=== PATIENT | female | born 1980 | race Caucasian/White ===

== ENCOUNTER → 2019-03-11 09:28 | Outpatient (CLI) | payer OTHER, SELFPAY ==
[2019-03-11 10:00] LABS: Add Manual Diff / Slide Review NO; Basophils Absolute Auto 0 /uL (0-100); Basophils Percent Auto 0.7 % (0-2); Eosinophils Absolute Auto 200 /uL (0-450); Hematocrit 40.4 % (36-46); Hemoglobin 13.7 g/dL (12.0-16.0); Lymphocytes Absolute Auto 2100 /uL (1100-4500); Lymphocytes Percent Auto 29.7 % (25-40); Mean Corpuscular HGB Conc 33.9 % (30-36); Mean Corpuscular Hemoglobin 29.6 PG (26-34); Mean Corpuscular Volume 87.2 fL (80-100); Monocytes Absolute Auto 500 /uL (0-900); Monocytes Percent Auto 6.6 % (3-14); Neutrophils Absolute Auto 4200 /uL (1500-7000); Platelet Count 261 X10^3/uL (150-400); Red Blood Cell Count 4.63 X10^6/uL (4.0-5.2); Red Cell Distribution Width 13.1 % (11.6-14.8)
[2019-03-11 10:33] LABS: Alanine Aminotransferase 39 IU/L (9-52); Albumin 4.4 g/dL (3.5-5.0); Albumin Globulin Ratio 1.8 (1.0-2.8); Alkaline Phosphatase 49 U/L (38-126); Aspartate Aminotransferase 24 IU/L (14-36); BUN Creatinine Ratio 18.8 (6-22); Bilirubin Total 0.4 mg/dL (0.2-1.3); Blood Urea Nitrogen 15 mg/dL (7-17); Calcium 9.4 mg/dL (8.4-10.2); Carbon Dioxide 23 mmol/L (22-32); Chloride 106 mmol/L (98-107); Cholesterol 171 mg/dL (140-199); Estimated Glomerular Filt Rate > 60.0 mL/min (>60); Globulin 2.5 g/dL (1.7-4.1); Glucose 87 mg/dL (70-100); HDL Cholesterol 53 mg/dL (40-60); HEMOLYSIS < 15 (0-50); LDL Cholesterol Calculated 104 mg/dL (<100); Potassium 4.6 mmol/L (3.4-5.1); Sodium 139 mmol/L (137-145); Total Protein 6.9 g/dL (6.3-8.2); Triglycerides 68 mg/dL (35-150)
[2019-03-11 11:21] LABS: Free T4, Direct Thyroxine 1.03 ng/dL (0.78-2.19)
[2019-03-11 11:34] LABS: Thyroid Stimulating Hormone 1.82 uIU/mL (0.47-4.68)
== END ==
PROVIDERS: PCP Internal Medicine; Visit Provider Internal Medicine
DX: F32.9 Major depressive disorder, single episode, unspecified (principal); F41.1 Generalized anxiety disorder; G43.909 Migraine, unspecified, not intractable, without status migrainosus; Z13.1 Encounter for screening for diabetes mellitus; Z13.6 Encounter for screening for cardiovascular disorders
CPT/HCPCS: 36415; 80053; 80061; 84439; 84443; 85025

== ENCOUNTER → 2020-04-13 14:15 | Outpatient (CLI) | payer OTHER, SELFPAY ==
--- NOTE | 2020-04-13 14:15 | DI.RAD.S_ITS ---
PROCEDURE: XR CHEST 2V INDICATIONS: cough TECHNIQUE: 2 views of the chest were acquired. COMPARISON: [facility], , CHEST 2 VIEW, 01/09/2012, 9:35. FINDINGS: Surgical changes and devices: None. Lungs and pleura: Lungs are clear. No pleural effusions or pneumothorax. Mediastinum: Mediastinal contours are normal. Heart size is normal. Bones and chest wall: No suspicious bony abnormalities. Soft tissues appear unremarkable. IMPRESSION: No pneumonia found. Source of cough is not seen. Dictated by: Jose George M.D. on 04/13/2020 at 15:16 Approved by: Jose George M.D. on 04/13/2020 at 15:17
== END ==
PROVIDERS: PCP Internal Medicine; Referring Provider Internal Medicine; Visit Provider Internal Medicine
DX: R05 Cough (principal)
CPT/HCPCS: 71046

== ENCOUNTER → 2020-05-05 15:20 | Outpatient (CLI) | payer OTHER, SELFPAY ==
[2020-05-06 09:05] LABS: COVID19 Sendout NOT DETECTED (Not Detect)
== END ==
PROVIDERS: PCP Internal Medicine; Visit Provider Registered Nurse
DX: Z01.812 Encounter for preprocedural laboratory examination (principal)
CPT/HCPCS: 87635

== ENCOUNTER → 2020-05-08 13:02 | Outpatient (CLI) | payer OTHER, SELFPAY ==
--- NOTE | 2020-05-13 10:09 | PM.PFT.1 ---
Pulmonary Function Test Referral & Results Date Patient Seen: 05/08/20 Requesting provider: Aleksandar Castro Indication: Shortness of breath and cough Results: The spirometry demonstrates an FVC of 5.23 L which is 124% of predicted. The FEV1 was measured at 3.95 L which is 115% of predicted. The FEV1/FVC ratio was 75 which is 91% of predicted. Following the administration of bronchodilator there was no appreciable change to above normal numbers. Lung volumes show an SVC of 5.11 L which is 131% of predicted. The diffusing capacity was measured at 30.64 which is 103% of predicted. The maximum voluntary ventilation was normal Interpretation: This study demonstrates normal pulmonary function. No etiology for cough or shortness of breath identified on this study
== END ==
PROVIDERS: PCP Internal Medicine; Referring Provider Internal Medicine; Visit Provider Internal Medicine
DX: R06.02 Shortness of breath (principal); J98.8 Other specified respiratory disorders
CPT/HCPCS: 94060; 94726; 94729

== ENCOUNTER → 2020-05-13 09:55 | Outpatient (CLI) | payer OTHER, SELFPAY ==
--- NOTE | 2020-05-13 09:56 | DI.CT.S_ITS ---
PROCEDURE: CT ANGIO CHEST PE PROTOCOL INDICATIONS: chest pain/cough TECHNIQUE: After the administration of intravenous contrast, 2 mm thick sections acquired from the pulmonary apices to the posterior costophrenic angles. 3-dimensional maximum intensity projection (MIP) coronal and sagittal reformats were then acquired through the thorax. For radiation dose reduction, the following was used: automated exposure control, adjustment of mA and/or kV according to patient size. COMPARISON: [facility], CR, XR CHEST 2V, 04/13/2020, 14:08. FINDINGS: Image quality: Excellent. Pulmonary arteries: Pulmonary arteries are normal in size, and demonstrate no intraluminal filling defects to suggest central pulmonary embolism. Lungs and pleura: Lungs are clear. No pleural effusions or pneumothorax. Central and peripheral airways are patent. Mediastinum: Heart size is normal, without pericardial effusion. No mediastinal or hilar adenopathy. Thoracic aorta is normal in caliber and enhancement. Esophagus is normal in caliber, without hiatal hernia. Bones and chest wall: No suspicious bony lesions. Ribs and thoracic spine appear intact throughout. There is a 1 cm left thyroid nodule. A 5 mm cyst is noted in the right thyroid lobe. No axillary or supraclavicular adenopathy. Abdomen: Visualized upper abdominal solid organs appear normal in the early arterial phase of enhancement. IMPRESSION: 1. No pulmonary embolism. 2. No pulmonary infiltrate or pleural effusion. 3. A 1 cm left thyroid nodule. Thyroid ultrasound is suggested for followup. Dictated by: Jeffrey Eubanks M.D. on 05/13/2020 at 10:37 Approved by: Jeffrey Eubanks M.D. on 05/13/2020 at 10:52
== END ==
PROVIDERS: PCP Internal Medicine; Referring Provider Internal Medicine; Visit Provider Internal Medicine
DX: R07.9 Chest pain, unspecified (principal); R05 Cough; E04.1 Nontoxic single thyroid nodule
CPT/HCPCS: 71275; Q9967

== ENCOUNTER → 2020-07-28 09:53 | Outpatient (CLI) | payer OTHER, SELFPAY ==
--- NOTE | 2020-07-28 | DI.CT.S_ITS ---
PROCEDURE: CT SINUS SCREEN WO CON INDICATIONS: Chronic sinusitis, unspecified TECHNIQUE: Noncontrast 3.0 mm axial images acquired from the frontal sinuses to the mid-sella, with coronal and sagittal reformats. For radiation dose reduction, the following was used: automated exposure control, adjustment of mA and/or kV according to patient size. COMPARISON: [facility], MR, BRAIN WITHOUT CONTRAST, 12/16/2014, 12:23. FINDINGS: Image quality: Excellent. Maxillary Sinuses: No bony remodeling or destruction. Mild mucosal thickening is seen within the inferior aspects of the maxillary sinuses. Ethmoid Air Cells: No bony remodeling or destruction. Sinuses are clear. Sphenoid Sinuses: No bony remodeling or destruction. Sinuses are clear. Frontal Sinuses: No bony remodeling or destruction. Sinuses are clear. Ostiomeatal Complexes: Ostiomeatal complexes are patent, yet they are constitutionally narrowed with bilateral Abran cells. Miscellaneous: Visualized intra-orbital contents are normal. No drake bullosa or paradoxical turbinate curvature. There is moderate leftward nasal septal deviation, with a leftward directed bony nasal septal spur. IMPRESSION: Mild mucosal thickening is seen within the inferior maxillary sinuses. There is moderate leftward nasal septal deviation, with a leftward directed bony nasal septal spur. Dictated by: Porter Montanez M.D. on 07/28/2020 at 9:08 Approved by: Porter Montanez M.D. on 07/28/2020 at 9:11
== END ==
PROVIDERS: PCP Internal Medicine; Referring Provider Internal Medicine; Visit Provider Internal Medicine
DX: J32.0 Chronic maxillary sinusitis (principal); J34.2 Deviated nasal septum; J34.89 Other specified disorders of nose and nasal sinuses
CPT/HCPCS: 70486

== ENCOUNTER → 2021-10-05 15:20 | Outpatient (CLI) | payer OTHER, SELFPAY ==
[2021-10-05 17:09] LABS: Free T4, Direct Thyroxine 0.73 ng/dL (0.78-2.19)
[2021-10-05 17:23] LABS: Thyroid Stimulating Hormone 1.01 uIU/mL (0.47-4.68)
[2021-10-05 17:29] LABS: Alanine Aminotransferase 16 IU/L (<35); Albumin 4.5 g/dL (3.5-5.0); Albumin Globulin Ratio 1.7 (1.0-2.8); Alkaline Phosphatase 43 U/L (38-126); Aspartate Aminotransferase 25 IU/L (14-36); BUN Creatinine Ratio 18.3 (6-22); Bilirubin Total 0.4 mg/dL (0.2-1.3); Blood Urea Nitrogen 17 mg/dL (7-17); Calcium 10.1 mg/dL (8.4-10.2); Carbon Dioxide 31 mmol/L (22-32); Chloride 103 mmol/L (98-107); Estimated Glomerular Filt Rate > 60.0 mL/min (>60); Globulin 2.6 g/dL (1.7-4.1); Glucose 70 mg/dL (70-100); HEMOLYSIS < 15 (0-50); Sodium 141 mmol/L (137-145); Total Protein 7.1 g/dL (6.3-8.2)
== END ==
PROVIDERS: PCP Internal Medicine; Referring Provider Internal Medicine; Visit Provider Internal Medicine
DX: E04.1 Nontoxic single thyroid nodule (principal)
CPT/HCPCS: 36415; 80053; 84439; 84443

== ENCOUNTER → 2021-10-13 14:10 | Outpatient (CLI) | payer OTHER, SELFPAY ==
--- NOTE | 2021-10-13 14:12 | DI.US.S_ITS ---
PROCEDURE: US THYROID INDICATIONS: NODULE ON CT TECHNIQUE: Real-time scanning was performed of the thyroid gland, with image documentation. COMPARISON: None. FINDINGS: Right: Thyroid lobe measures 5 x 1.2 x 1.5 cm, and is homogeneous in echotexture. Left: Thyroid lobe measures 4.7 x 1.3 x 1.6 cm, and is homogenous in echotexture. Isthmus: 2.2 mm thick. Nodule number: 1 Location: Lower pole of left thyroid lobe Size: 1 x 0.7 x 1 cm. Composition: Solid Echogenicity: Hyperechoic Shape: Wider than tall Margins: Smooth Echogenic foci: Non Total points: 3 ACR TI-RADS category: 3, mildly suspicious. Nodule number: 2 Location: Lower pole of right thyroid lobe Size: 0.7 x 0.6 x 0.6 cm. Composition: Solid Echogenicity: Hyperechoic Shape: Wider than tall Margins: Smooth Echogenic foci: Non Total points: 3 ACR TI-RADS category: 3, mildly suspicious. IMPRESSION: Mildly suspicious small bilateral thyroid lobe nodules as described above. Follow-up ultrasound based on following recommendation is suggested. ACR TI-RADS definitions and recommendations: TI-RADS 1 (benign): 0 points. FNA not needed. TI-RADS 2 (not suspicious): 2 points. FNA not needed. TI-RADS 3 (mildly suspicious): 3 points. * FNA if 2.5 cm or larger, follow up if 1.5 cm or larger (at 1, 3, and 5 years). TI-RADS 4 (moderately suspicious): 4-6 points. * FNA if 1.5 cm or larger, follow up if 1 cm or larger (at 1, 2, 3, and 5 years). TI-RADS 5 (highly suspicious): 7 points or more. * FNA if 1 cm or larger, follow up if 0.5 cm or larger (every year for 5 years). Dictated by: Hubert Nash M.D. on 10/20/2021 at 10:24 Approved by: Hubert Nash M.D. on 10/20/2021 at 10:27
== END ==
PROVIDERS: PCP Internal Medicine; Referring Provider Internal Medicine; Visit Provider Internal Medicine
DX: E04.2 Nontoxic multinodular goiter (principal)
CPT/HCPCS: 76536

== ENCOUNTER 2022-03-16 14:22 | Emergency (ER) | payer OTHER, SELFPAY ==
[2022-03-16 14:34] VITALS: BP 167/90; PULSE 67; RESP 14; TEMP 37.1; O2SAT 97; BMI 22.8
--- NOTE | 2022-03-16 14:37 | DI.RAD.S_ITS ---
PROCEDURE: XR FOOT RT MIN 3V INDICATIONS: right foot pain, stepped on by horse TECHNIQUE: 3 views of the foot were acquired. COMPARISON: None. FINDINGS: Bones: No fractures or dislocations. No suspicious bony lesions. Soft tissues: No tibiotalar joint effusion. Achilles tendon appears normal. IMPRESSION: No acute right foot fracture or dislocation. Dictated by: Hubert Nash M.D. on 03/16/2022 at 15:06 Approved by: Hubert Nash M.D. on 03/16/2022 at 15:07
--- NOTE | 2022-03-16 16:24 | ED.LOWEXIN ---
HPI - Extremity Injury (Lower) <MELIDA Acosta - Last Filed: 03/16/22 19:37> General Chief Complaint: Extremity Injury, Lower Stated Complaint: horse stepped on top of foot Time Seen by Provider: 03/16/22 16:09 Source: patient Mode of arrival: Ambulatory History of Present Illness HPI Narrative: This is a 41-year-old male presents to the emergency department complaining of right dorsum foot pain after her worse stepped on her midfoot earlier today. Patient has ecchymosis to the dorsum of her foot, states she is able to move all of her toes and move her ankle without any pain however the bruising made her worried that there is a fracture. She states she has applied Voltaren gel 2 times earlier today to the dorsum of her foot which was mildly helpful, she took some ibuprofen as well. Patient is concerned about a fracture. She states she is ambulatory and can bear weight but it is painful on the top of her foot with movement. Related Data Home Medications Medication Instructions Recorded Confirmed ibuprofen 200 mg tablet (Advil) 200 mg PO PRN #0 06/21/12 10/05/21 loratadine 10 mg tablet (Claritin) 10 mg PO DAILY 04/25/19 10/05/21 Previous Rx's Medication Instructions Recorded citalopram 10 mg tablet (Celexa) 15 mg PO DAILY #45 tab 03/10/21 alprazolam 1 mg tablet 1 mg PO BID PRN #4 tab 10/18/21 tramadol 50 mg tablet 50 mg PO DAILY PRN #10 tab 03/16/22 Allergies Allergy/AdvReac Type Severity Reaction Status Date / Time codeine [CODEINE] AdvReac Mild vomiting Verified 10/05/21 15:03 oxycodone [From PERCOCET] AdvReac Mild vomiting Verified 10/05/21 15:03 promethazine [PROMETHAZINE] AdvReac Mild nerve Verified 10/05/21 15:03 reaction, twitching Review of Systems <MELIDA Acosta - Last Filed: 03/16/22 19:37> Review of Systems Narrative: General: denies fever, chills, malaise, sweats, fatigue Head/Neck: denies headache, neck pain, dizziness Eyes: denies visual changes, eye pain Cardio: denies chest pain, palpitations, edema Respiratory: denies dyspnea, cough, orthopnea GI: denies abdominal pain, nausea, vomiting, or diarrhea : denies dysuria, hematuria, urinary retention, frequency or incontinence MSK: denies joint pain, muscle weakness, right dorsum foot pain after horse stepped on Skin: denies rash, itching, skin lesions or other Neuro: denies numbness, tingling Patient History <MELIDA Acosta - Last Filed: 03/16/22 19:37> Medical History Allergic rhinitis Anxiety state, unspecified Asthma, mild Depression 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 Mother Sarcoma Social History Smoking Status: Never smoker Smoking Status: Never smoker alcohol intake frequency: 0-2 drinks per day Substance Use Type: does not use Exam <MELIDA Acosta - Last Filed: 03/16/22 19:37> Narrative Exam Narrative: Independently reviewed vitals signs and nursing notes. General: cooperative, comfortable, in no acute distress, well developed and well groomed Head: atraumatic, symmetrical facial expressions Neck: supple, atraumatic Cardiovascular: regular rate and rhythm, no peripheral edema, warm extremities Respiratory: normal effort, able to speak in complete sentences, no audible wheezing, stridor, or rales. No retractions or tachypnea. MSK: moves all extremities, ambulatory w/steady gait, neurovascularly intact, no weakness, range of motion intact in her right ankle and right foot. No tenderness over proximal 5th or 1st metatarsal, no tenderness over medial or lateral malleolus, PT and DP pulses are 2+, cap refill in her toes are less than 2 seconds, full range of motion intact without significant tenderness over her metatarsals. No open wound. Skin: brisk capillary refill, no rash, no erythema, ecchymosis to the dorsum of her right foot Neuro: normal speech and cognition, A&O x3, normal tone Psych: mental status is grossly normal, congruent mood, normal affect, pleasant and cooperative Initial Vital Signs Initial Vital Signs: Vital Signs Temperature 98.7 F 03/16/22 14:34 Pulse Rate 67 03/16/22 14:34 Respiratory Rate 14 03/16/22 14:34 Blood Pressure 167/90 H 03/16/22 14:34 Pulse Oximetry 97 03/16/22 14:34 Course <MELIDA Acosta - Last Filed: 03/16/22 19:37> Orders Ordered: Discontinued Medications Ondansetron HCl (Ondansetron 4 Mg Odt) 4 mg SL NOW ONE Stop: 03/16/22 16:22 Last Admin: 03/16/22 16:35 Dose: 4 mg Documented by: CINTIA Tramadol HCl (Tramadol 50 Mg Tablet) 50 mg PO NOW ONE Stop: 03/16/22 16:21 Last Admin: 03/16/22 16:35 Dose: 50 mg Documented by: CINTIA Vital Signs Vital signs: Vital Signs - 8 hr 03/16/22 14:34 Temperature 98.7 F Pulse Rate 67 Respiratory Rate 14 Blood Pressure 167/90 H Pulse Oximetry 97 [facility] - Extremity Injury (Lower) <MELIDA Acosta - Last Filed: 03/16/22 19:37> Imaging Data Extremity x-ray #1: Radiologist's Impression: PROCEDURE:? XR FOOT RT MIN 3V ? INDICATIONS:? right foot pain, stepped on by horse ? TECHNIQUE:? 3 views of the foot were acquired.? ? COMPARISON:? None. ? FINDINGS:? ? Bones:? No fractures or dislocations.? No suspicious bony lesions.? ? Soft tissues:? No tibiotalar joint effusion.? Achilles tendon appears normal.? ? ? IMPRESSION:? No acute right foot fracture or dislocation. ? ? Dictated by: Hubert Nash M.D. on 03/16/2022 at 15:06 ? ? Approved by: Hubert Nash M.D. on 03/16/2022 at 15:07 ? [facility] Narrative Medical decision making narrative: This is a pleasant 41-year-old female presents to the emergency department for right dorsum foot pain after her horse stepped on her foot. She states she was wearing inch boots at the time but has ecchymosis and tenderness to the dorsum of her right foot. X-rays negative for fracture or dislocation, no tibiotalar joint effusion, Achilles tendon appears normal. Patient was fitted in a postop shoe, states that her pain is controlled with ibuprofen that she took prior to arrival, has applied Voltaren gel, states this is helpful. Patient understands to wear her postop shoe for as long as that is helpful, follow-up with her primary doctor for any worsening. Patient is appropriate and amenable to discharge home. Vital signs are stable on repeat examination is unremarkable. Patient has been informed of results. Patient has been given strict return to ER precautions for any new or worsening symptoms. Patient understands to follow up closely with outpatient providers as instructed. Patient understands plan and agrees to discharge home. All questions and concerns answered at this time. Discharge Plan Departure Patient Disposition: Home Clinical Impression: Foot injury Qualifiers: Encounter type: initial encounter Laterality: right Qualified Code(s): S99.921A - Unspecified injury of right foot, initial encounter Instructions: DI for Foot Pain Activity Restrictions/Additional Instructions: *You have been diagnosed with right foot pain after yours try to get close. No fractures on your x-ray, congratulations! Please wear this postop shoe for as long as it is helpful, if you can tolerate a regular shoe for your horse show but is completely acceptable. If you have ongoing right foot pain beyond 1 week, please follow-up with Podiatry. Please try the tramadol, this will hopefully help you with your pain at home, follow-up with Dr. Castro if you need a referral to physical therapy or Podiatry. I would ice this frequently over the next 2-3 days, take ibuprofen, Tylenol, and tramadol as you need for pain, Voltaren gel can be applied up to 4 times a day to this 1 area. Have a great weekend. *What to do: *Please continue to take your regular medications as directed. [ x] New medication prescriptions sent to your pharmacy: [ [facility]] [ ] New medication written as a paper prescription [ ] No new medications given *Please follow up with your primary care provider in 2-3 days, call for an appointment. Let them know you were seen in the Emergency Department and that we asked that you be seen for follow-up. We will electronically transmit a record of today's note if your PCP is in our system *If you do not have a primary care provider please contact [phone] to establish care with one of the [facility] primary care providers. *Return to Emergency Department if you should have any new, worsening or concerning symptoms, such as [fever greater than 101F, chills, worsening pain, persistent vomiting or other bothersome symptoms] Prescriptions: New tramadol 50 mg tablet 50 mg PO DAILY PRN (Reason: pain) Qty: 10 0RF No Action ibuprofen [Advil] 200 MG tablet 200 mg PO PRN Qty: 0 0RF alprazolam 1 mg tablet 1 mg PO BID PRN (Reason: anxiety) Qty: 4 0RF loratadine [Claritin] 10 mg tablet 10 mg PO DAILY 0RF citalopram [Celexa] 10 mg tablet 15 mg PO DAILY Qty: 45 11RF Referrals: Aleksandar Castro MD [Primary Care Provider] -
[2022-03-16] MEDS: TRAMADOL 50 MG TABLET PO (16:35)
[2022-03-16] MEDS: ONDANSETRON 4 MG ODT SL (16:35)
== END 2022-03-16 16:45 | disposition home or self-care (01) ==
PROVIDERS: Emergency Provider Nurse Practitioner Critical Care Medicine; PCP Internal Medicine
DX: S99.921A Unspecified injury of right foot, initial encounter (principal); W55.19XA Other contact with horse, initial encounter
CPT/HCPCS: 73630; 99283

== ENCOUNTER → 2022-04-07 10:28 | Outpatient (CLI) | payer SELFPAY ==
--- NOTE | 2022-04-07 10:29 | DI.RAD.S_ITS ---
PROCEDURE: XR FOOT RT MIN 3V INDICATIONS: Right foot injury TECHNIQUE: 3 views of the foot were acquired. COMPARISON: [facility], , XR FOOT RT MIN 3V, 03/16/2022, 14:34. FINDINGS: Bones: No fractures or dislocations. No suspicious bony lesions. Soft tissues: No tibiotalar joint effusion. Achilles tendon appears normal. IMPRESSION: No acute osseous abnormality. Dictated by: Russel Tello M.D. on 04/07/2022 at 12:08 Approved by: Russel Tello M.D. on 04/07/2022 at 12:10
== END ==
PROVIDERS: PCP Internal Medicine; Referring Provider Internal Medicine; Visit Provider Internal Medicine
DX: S99.921A Unspecified injury of right foot, initial encounter (principal); X58.XXXA Exposure to other specified factors, initial encounter
CPT/HCPCS: 73630

== ENCOUNTER → 2022-11-11 08:21 | Outpatient (CLI) | payer OTHER, SELFPAY ==
[2022-11-11 09:37] LABS: Influenza A - CEPHEID Flu A POSITIVE (NEGATIVE); Influenza B - CEPHEID Flu B NEGATIVE (NEGATIVE); Respiratory Syncytial Virus Negative (Negative)
[2022-11-11 09:46] LABS: COVID-19 CEPHEID 4-PLEX PCR Negative (Negative)
== END ==
PROVIDERS: PCP Internal Medicine; Visit Provider Nurse Practitioner Family
DX: R05.9 Cough, unspecified (principal); R50.9 Fever, unspecified; Z20.822 Contact with and (suspected) exposure to COVID-19
CPT/HCPCS: 0241U

== ENCOUNTER → 2023-01-11 06:32 | Outpatient (CLI) | payer OTHER, SELFPAY ==
--- NOTE | 2023-01-11 06:34 | DI.MG.S_ITS ---
BILATERAL DIGITAL SCREENING MAMMOGRAM 3D/2D WITH CAD: 01/11/2023 CLINICAL: Baseline exam. Routine screening. Family history of breast cancer. No prior exams were available for comparison. Both breasts are heterogeneously dense, which may obscure small masses (category c / 51-75% glandular tissue). Current study was also evaluated with a Computer Aided Detection (CAD) system. No significant masses, calcifications, or other findings are seen in either breast. IMPRESSION: NEGATIVE There is no mammographic evidence of malignancy. A 1 year screening mammogram is recommended. This exam was interpreted at Station ID: [id number]. NOTE: For mammograms, a report in lay terms will be sent to the patient. Approximately 15% of breast malignancies will not be visualized mammographically. In the management of a palpable breast mass, a negative mammogram must not discourage biopsy of a clinically suspicious lesion. Electronically Signed By: Ruth Ann [email or web address]/[email or web address]:01/11/2023 15:34:40 copy to: VERNON BANKS letter sent: Normal Exam ACR BI-RADS Category 1: Negative 3341F
--- NOTE | 2023-01-11 06:34 | DI.US.S_ITS ---
PROCEDURE: US THYROID INDICATIONS: BILATERAL THYROID NODULES FOLLOW UP TECHNIQUE: Real-time scanning was performed of the thyroid gland, with image documentation. COMPARISON: [facility], US, US THYROID, 10/13/2021, 14:23. FINDINGS: Right: Thyroid lobe measures 5.4 x 1.8 x 1.2 cm, and is homogeneous in echotexture. Left: Thyroid lobe measures 5.5 x 1.8 x 1.2 cm, and is homogenous in echotexture. Isthmus: 2.7 mm thick. Nodule number: 1 Location: Lower pole left thyroid lobe Size: 1.0 x 1.0 x 0.6 cm compared to 1.0 x 1.0 x 0.7 cm on previous study. Composition: Predominantly solid Echogenicity: Isoechoic Shape: Wider than tall Margins: Smooth Echogenic foci: None Total points: 3 ACR TI-RADS category: Mildly suspicious. Nodule number: 2 Location: Lower pole right thyroid lobe Size: 0.7 x 0.6 x 0.7 cm. Previously 0.7 x 0.6 x 0.6 cm. Composition: Solid Echogenicity: Hypoechoic Shape: Wider than tall Margins: Smooth Echogenic foci: Peripheral calcifications Total points: 4 ACR TI-RADS category: Moderately suspicious. IMPRESSION: Stable appearing bilateral lower pole thyroid nodules. Continued sonographic follow-up is recommended. ACR TI-RADS definitions and recommendations: TI-RADS 1 (benign): 0 points. FNA not needed. TI-RADS 2 (not suspicious): 2 points. FNA not needed. TI-RADS 3 (mildly suspicious): 3 points. * FNA if 2.5 cm or larger, follow up if 1.5 cm or larger (at 1, 3, and 5 years). TI-RADS 4 (moderately suspicious): 4-6 points. * FNA if 1.5 cm or larger, follow up if 1 cm or larger (at 1, 2, 3, and 5 years). TI-RADS 5 (highly suspicious): 7 points or more. * FNA if 1 cm or larger, follow up if 0.5 cm or larger (every year for 5 years). Dictated by: Hubert Nash M.D. on 01/11/2023 at 9:46 Approved by: Hubert Nash M.D. on 01/11/2023 at 9:57
== END ==
PROVIDERS: PCP Internal Medicine; Referring Provider Internal Medicine; Visit Provider Internal Medicine
DX: Z12.31 Encounter for screening mammogram for malignant neoplasm of breast (principal); Z80.3 Family history of malignant neoplasm of breast; E04.2 Nontoxic multinodular goiter
CPT/HCPCS: 76536; 77063; 77067

== ENCOUNTER → 2023-11-16 14:22 | Outpatient (CLI) | payer OTHER, SELFPAY ==
--- NOTE | 2023-11-16 | DI.CT.S_ITS ---
PROCEDURE: CT SINUS SCREEN WO CON INDICATIONS: NASAL OBSTRUCTION,CHRONIC PANSINUSITIS TECHNIQUE: Noncontrast 3.0 mm axial images acquired from the frontal sinuses to the mid-sella, with coronal and sagittal reformats. For radiation dose reduction, the following was used: automated exposure control, adjustment of mA and/or kV according to patient size. COMPARISON: , CT, CT SINUS SCREEN WO CON, 07/28/2020, 9:57. FINDINGS: Maxillary Sinuses: Mild mucosal thickening in the floor the left maxillary sinus measures 4 mm. No remodeling Ethmoid Air Cells: No bony remodeling or destruction. Sinuses are clear. Sphenoid Sinuses: No bony remodeling or destruction. Sinuses are clear. Frontal Sinuses: No bony remodeling or destruction. Sinuses are clear. Ostiomeatal Complexes: Ostiomeatal complexes are patent. No Abran cells. Miscellaneous: Leftward osseous nasal septal bowing. Cartilaginous septum midline. IMPRESSION: Mild left maxillary sinus mucosal thickening without remodeling. Approved by: David Cerrato M.D. on 11/16/2023 at 16:35
== END ==
PROVIDERS: PCP Internal Medicine; Referring Provider Otolaryngology; Visit Provider Otolaryngology
DX: J32.4 Chronic pansinusitis (principal); J34.89 Other specified disorders of nose and nasal sinuses; J34.3 Hypertrophy of nasal turbinates
CPT/HCPCS: 70486

== ENCOUNTER → 2024-03-08 07:44 | Outpatient (CLI) | payer OTHER, SELFPAY ==
--- NOTE | 2024-03-08 | DI.MG.S_ITS ---
BILATERAL DIGITAL SCREENING MAMMOGRAM 3D/2D WITH CAD: 03/08/2024 CLINICAL: Routine screening. Family history of breast cancer. Comparison is made to exam dated: 01/11/2023 mammogram - [facility]. Both breasts are heterogeneously dense, which may obscure small masses (category c / 51-75% glandular tissue). Current study was also evaluated with a Computer Aided Detection (CAD) system. There is a possible developing asymmetry in the right breast middle depth medial region seen on the craniocaudal view only. No other significant masses, calcifications, or other findings are seen in either breast. IMPRESSION: INCOMPLETE: NEEDS ADDITIONAL IMAGING EVALUATION The possible developing asymmetry in the right breast is indeterminate. Additional views with possible ultrasound are recommended. Based on the Tyrer Cuzick model (a risk assessment model) the patient's lifetime risk is 15.1% and her 10 year risk is 2.3%. According to the ACR, ACS, and NCCN guidelines, an annual breast MRI exam along with mammogram is recommended if the patient's lifetime risk is 20% or greater. This exam was interpreted at Station ID: [id number]. NOTE: For mammograms, a report in lay terms will be sent to the patient. Approximately 15% of breast malignancies will not be visualized mammographically. In the management of a palpable breast mass, a negative mammogram must not discourage biopsy of a clinically suspicious lesion. Electronically Signed By: Denny Mei M.D. [facility] [place]/:03/08/2024 16:30:24 letter sent: Additional Imaging Needed ACR BI-RADS Category 0: Incomplete [id number]
== END ==
LOC: MAMMO 07:45
PROVIDERS: PCP Internal Medicine; Referring Provider Internal Medicine; Visit Provider Internal Medicine
DX: Z12.31 Encounter for screening mammogram for malignant neoplasm of breast (principal); Z80.3 Family history of malignant neoplasm of breast; R92.333 Mammographic heterogeneous density, bilateral breasts
CPT/HCPCS: 77063; 77067

== ENCOUNTER → 2024-03-28 08:45 | Outpatient (CLI) | payer OTHER, SELFPAY ==
--- NOTE | 2024-03-28 08:46 | DI.MG.S_ITS ---
UNILATERAL RIGHT DIGITAL DIAGNOSTIC MAMMOGRAM 3D/2D WITH ADDITIONAL VIEWS: 03/28/2024 CLINICAL: Additional evaluation requested from prior study. Comparison is made to exams dated: 01/11/2023 mammogram and 03/08/2024 mammogram - [facility]. The right breast is heterogeneously dense, which may obscure small masses (category c / 51-75% glandular tissue). There is a possible asymmetry in the right breast middle depth medial region seen on the craniocaudal view only. This is not seen in additional views, likely superimposition artifact. No other significant masses or calcifications are seen in the breast. IMPRESSION: NEGATIVE There is no mammographic evidence of malignancy. Return to annual mammogram screening schedule is recommended. Based on the Tyrer Cuzick model (a risk assessment model) the patient's lifetime risk is 15.1% and her 10 year risk is 2.3%. According to the ACR, ACS, and NCCN guidelines, an annual breast MRI exam along with mammogram is recommended if the patient's lifetime risk is 20% or greater. This exam was interpreted at Station ID: [id number]. NOTE: For mammograms, a report in lay terms will be sent to the patient. Approximately 15% of breast malignancies will not be visualized mammographically. In the management of a palpable breast mass, a negative mammogram must not discourage biopsy of a clinically suspicious lesion. Electronically Signed By: Pedro Arenas M.D. /:03/28/2024 09:10:42 letter sent: Normal Exam ACR BI-RADS Category 1: Negative [id number]
== END ==
PROVIDERS: PCP Internal Medicine; Referring Provider Internal Medicine; Visit Provider Internal Medicine
DX: R92.8 Other abnormal and inconclusive findings on diagnostic imaging of breast (principal); R92.331 Mammographic heterogeneous density, right breast
CPT/HCPCS: 77065; G0279

== ENCOUNTER 2025-01-16 13:43 | Emergency (ER) | payer OTHER, SELFPAY ==
[2025-01-16 13:49] VITALS: BP 139/68; PULSE 77; RESP 18; TEMP 36.5; O2SAT 99; BMI 21.7
--- NOTE | 2025-01-16 13:58 | DI.RAD.S_ITS ---
PROCEDURE: XR SHOULDER RT MIN 2V INDICATIONS: bucked off horse TECHNIQUE: 3 views of the shoulder were acquired. COMPARISON: None. FINDINGS: Bones: No fractures or dislocations. No suspicious bony lesions. Visualized ribs appear intact. Soft tissues: No suspicious soft tissue calcifications. IMPRESSION: No acute bony abnormality. Dictated by: David Goodman M.D. on 01/16/2025 at 14:51 Approved by: David Goodman M.D. on 01/16/2025 at 14:51
--- NOTE | 2025-01-16 14:09 | ED.FALL ---
HPI - Fall General Chief Complaint: Trauma Stated Complaint: came off my horse Time Seen by Provider: 01/16/25 14:08 Source: patient Mode of arrival: Ambulatory History of Present Illness HPI Narrative: 44-year-old female without any significant past medical history comes into the ED from home for evaluation of right shoulder/neck pain after being thrown off her horse. She states this happened proximally 15 minutes prior to arrival. She denies any numbness weakness tingling to lower extremities or upper extremities was wearing her helmet no LOC no blood thinners. Patient denies any other symptoms such as headache visual disturbances chest pain shortness breath fever chills nausea vomiting abdominal pain or any other GI/ symptoms. At time of evaluation patient NIH of 0, no focal deficits neurologically intact bilateral upper lower extremities able to stand bear weight ambulate unassisted here in the emergency department. Related Data Home Medications Medication Instructions Recorded Confirmed ibuprofen 200 mg tablet (Advil) 200 mg PO PRN ##0 06/21/12 11/14/22 Previous Rx's Medication Instructions Recorded alprazolam 1 mg tablet 1 mg PO BID PRN anxiety #4 tabs 10/18/21 benzonatate 100 mg capsule 100 mg PO BID PRN cough #20 caps 11/11/22 valacyclovir 1 gram tablet 2,000 mg (2 x 1 gram) PO BID 1 day 11/14/22 (Valtrex) #4 tabs citalopram 10 mg tablet See Rx Instructions .Route 12/05/22 .COMPLEX #45 tabs clonazepam 1 mg tablet 1 mg PO BEDTIME #90 tabs 12/05/22 cyclobenzaprine 10 mg tablet 10 mg PO BEDTIME PRN muscle spasm 01/16/25 1 week #7 tabs naproxen 500 mg tablet (Naprosyn) 500 mg PO BID PRN pain 1 week #14 01/16/25 tabs Allergies Allergy/AdvReac Type Severity Reaction Status Date / Time codeine [CODEINE] AdvReac Mild vomiting Verified 11/14/22 10:36 oxycodone [From PERCOCET] AdvReac Mild vomiting Verified 11/14/22 10:36 promethazine [PROMETHAZINE] AdvReac Mild nerve Verified 11/14/22 10:36 reaction, twitching Review of Systems Review of Systems Narrative: General: Denies fever, chills, weight loss HEENT: Right-sided neck pain, Denies headache, eye drainage, eye irritation, head trauma, sore throat, voice change Cardiovascular: Denies any chest pain, palpitations, shortness of breath, tachycardia Respiratory: Denies any shortness of breath, cough, wheeze, stridor GI/: Denies any abdominal pain, nausea, vomiting, diarrhea, bright red blood per rectum, melanotic stools, urinary frequency, urinary retention, dysuria, hematuria MSK: Right-sided did shoulder pain, Skin: Denies any rashes, lesions, discoloration Neuro: Denies any headache, lightheadedness, dizziness, fainting, weakness Psych: Denies SI/HI Patient History Medical History (Updated 01/16/25 @ 15:43 by Baudilio Da Silva DO) Inverted nipple 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 Mother Sarcoma Social History Smoking Status: Never smoker Smoking Status: Never smoker alcohol intake frequency: 0-2 drinks per day Exam Narrative Exam Narrative: General: Cooperative, comfortable, well-developed, not in acute distress HEENT: Normocephalic, atraumatic, PERRLA, normal sclera, eyelids normal, Neck: Active full range of motion, atraumatic Chest: Normal to inspection, negative crepitus, no overlying erythema ecchymosis Respiratory: Normal respiratory effort, not in acute respiratory distress, clear to auscultation bilaterally negative cough, wheeze, tachypnea, rhonchi, rales Cardiology: Regular rate rhythm negative gallop, murmur, rubs GI/: Normal to inspection, soft, nonrigid, no tenderness to palpation, exam deferred MSK: Full range of active range of motion of all 4 extremities, atraumatic, bilateral upper lower extremities neurovascularly intact there is no tenderness to palpation of any bony prominences normal active and passive range of motion of right upper extremity. There is no tenderness to palpation of the midline spine Skin: No rashes lesions noted Neuro: Alert awake oriented x3, moves all 4 extremities spontaneously, cranial nerves intact, able to answer all questions appropriately follows commands appropriately Psych: Cooperative, negative suicidal or homicidal ideations Initial Vital Signs Initial Vital Signs: Vital Signs Temperature 97.7 F 01/16/25 13:49 Pulse Rate 77 01/16/25 13:49 Respiratory Rate 18 01/16/25 13:49 Blood Pressure 139/68 01/16/25 13:49 Pulse Oximetry 99 01/16/25 13:49 Oxygen Delivery Method Room Air 01/16/25 13:49 Course Orders Ordered: ED Orders 01/16/25 13:58 XR shoulder RT min 2V Stat 01/16/25 14:07 CT cervical spine wo con Stat CT chest wo con Stat CT head/brain wo con Stat 01/16/25 14:30 Urine Microscopic Stat Vital Signs Vital signs: Vital Signs - 8 hr 01/16/25 13:49 Temperature 97.7 F Pulse Rate 77 Respiratory Rate 18 Blood Pressure 139/68 Pulse Oximetry 99 Oxygen Delivery Method Room Air MDM - Fall Differential Diagnosis Differential diagnosis: Likely other (Rib fracture, rib contusion, closed head injury, cervical neck strain, shoulder dislocation) Lab Data Labs: Point of Care Testing Test Results Negative Urine Dip Bedside Urine Glucose Negative Bedside Urine Bilirubin - Negative Bedside Urine Ketone +/- 5 Urine Specific [place] 1.010 Bedside Urine Occult Blood + Bedside Urine pH 6.0 Bedside Urine Protein - Negative Bedside Urine Urobilinogen - Negative Bedside Urine Nitrite - Negative Bedside Urine Leukocytes +/- [address] scan - head: Radiologist's Impression: [address] [address] [address] Scan Report Signed Patient: Andra Wilson MR#: [id number] : 1980 Acct:[id number] Age/Sex: 44 / F Date of Service: 01/16/25 Loc: ED Accession Number: [id number] Procedure: CT head/brain wo con Ordering Provider: Baudilio Da Silva D.O. PROCEDURE: CT HEAD/BRAIN WO CON INDICATIONS: fall off horse/modified trauma TECHNIQUE: Noncontrast 4.5 mm thick angled axial sections acquired from the foramen magnum to the vertex, with coronal and sagittal reformats. For radiation dose reduction, the following was used: automated exposure control, adjustment of mA and/or kV according to patient size. COMPARISON: None. FINDINGS: Image quality: Diagnostic. CSF spaces: Basal cisterns are patent. No extra-axial fluid collections. Ventricles are normal in size and shape. Brain: No midline shift. No intracranial masses or hemorrhage. Choi-white matter interface is normal. Skull and face: Calvarium and visualized facial bones are intact, without suspicious lesions. Sinuses: Visualized sinuses and mastoids are clear. IMPRESSION: No acute intracranial pathology. CT scan - chest: Radiologist's Impression: [address] [address] [address] Scan Report Signed Patient: Andra Wilson MR#: [id number] : 1980 Acct:[id number] Age/Sex: 44 / F Date of Service: 01/16/25 Loc: ED Accession Number: [id number] Procedure: CT chest wo con Ordering Provider: Baudilio Da Silva D.O. PROCEDURE: CT CHEST WO CON INDICATIONS: fall off horse/modified trauma TECHNIQUE: Noncontrast 5 mm thick sections acquired from the pulmonary apices to the posterior costophrenic angles. 1 mm lung window, 5 mm thick coronal and sagittal and 7 mm axial MIP reformats were then acquired. For radiation dose reduction, the following was used: automated exposure control, adjustment of mA and/or kV according to patient size. COMPARISON: None. FINDINGS: Image quality: Diagnostic. Lower Neck: No enlarged lymph nodes. Thyroid: No thyroid nodules which require sonographic follow up, per consensus guidelines. Axillae: No enlarged lymph nodes. Chest Wall: Unremarkable. Bones: No displaced fractures. Lungs and Pleura: No pneumothorax or pleural effusions. No consolidation or suspicious nodules. No contusions. Heart: Heart size is normal. No pericardial effusion. Thoracic Vessels: The aorta and pulmonary arteries demonstrate normal size. Mediastinum and Rachell: No enlarged lymph nodes. Esophagus: No wall thickening. No hiatal hernia. Upper Abdomen: Visualized upper abdomen solid organs and bowel loops appear normal. IMPRESSION: No evidence of traumatic injury. CT - cervical spine: Radiologist's Impression: [address] [address] [address] Scan Report Signed Patient: Andra Wilson MR#: [id number] : 1980 Acct:[id number] Age/Sex: 44 / F Date of Service: 01/16/25 Loc: ED Accession Number: [id number] Procedure: CT cervical spine wo con Ordering Provider: Baudilio Da Silva D.O. PROCEDURE: CT CERVICAL SPINE WO CON INDICATIONS: fall off horse/modified trauma TECHNIQUE: Noncontrast 3 mm thick sections acquired from the skull base to the T4 level. Sagittal and coronal reformats were then constructed. For radiation dose reduction, the following was used: automated exposure control, adjustment of mA and/or kV according to patient size. COMPARISON: None. FINDINGS: Image quality: Excellent. Bones: No fractures or dislocations. Visualized superior ribs are intact. Soft tissues: Prevertebral soft tissues are normal in thickness. No paravertebral hematomas. No apical pneumothoraces. IMPRESSION: No displaced fracture or traumatic subluxation. Extremity x-ray #1: Radiologist's Impression: [address] [address] XRay Report Signed Patient: Andra Wilson MR#: [id number] : 1980 Acct:[id number] Age/Sex: 44 / F Date of Service: 01/16/25 Loc: ED Accession Number: [id number] Procedure: XR shoulder RT min 2V Ordering Provider: Baudilio Da Silva D.O. PROCEDURE: XR SHOULDER RT MIN 2V INDICATIONS: bucked off horse TECHNIQUE: 3 views of the shoulder were acquired. COMPARISON: None. FINDINGS: Bones: No fractures or dislocations. No suspicious bony lesions. Visualized ribs appear intact. Soft tissues: No suspicious soft tissue calcifications. IMPRESSION: No acute bony abnormality. MDM Narrative Medical decision making narrative: 44-year-old female without any significant past medical history comes into the ED from home after being bucked off her horse, was wearing her helmet no LOC states that she fell on her back, had pain to her right shoulder neurovascularly intact bilateral upper and lower extremities able to stand bear weight ambulate. No tenderness to palpation of any bony prominences patient had CT scan of head neck chest without any fractures x-ray of the right shoulder nonacute no traumatic injuries. Patient's symptoms more likely secondary to strain/contusion, she was given strict return precautions she verbalized understanding of this and agrees to being discharged home with outpatient follow up Discharge Plan Departure Patient Disposition: Home Clinical Impression: Contusion of right shoulder, Sprain of cervical neck Instructions: DI for Contusion Activity Restrictions/Additional Instructions: Please follow up with primary care Please read the discharge instructions sheet carefully and bring all papers to all doctor follow-up visits, as it may contain information that your doctor may want to see. Disease processes change and evolve, if your symptoms worsen or if you develop any new symptoms that are concerning to you please return for evaluation. Your evaluation today does not show any evidence of any life-threatening/serious illnesses requiring admission to the hospital or surgery. Please follow-up with your doctor for re-evaluation in approximately 1 day. Seek immediate medical attention for any worrisome symptoms. *If you do not have a primary care provider please contact the [facility] Resource line at [phone]. They will ask some questions about your medical history and help get you set up with a doctor in the community. Prescriptions: New cyclobenzaprine 10 mg tablet 10 mg PO BEDTIME PRN (Reason: muscle spasm) 7 Days Qty: 7 0RF naproxen [Naprosyn] 500 mg tablet 500 mg PO BID PRN (Reason: pain) 7 Days Qty: 14 0RF No Action benzonatate 100 mg capsule 100 mg PO BID PRN (Reason: cough) Qty: 20 0RF ibuprofen [Advil] 200 MG tablet 200 mg PO PRN Qty: 0 alprazolam 1 mg tablet 1 mg PO BID PRN (Reason: anxiety) Qty: 4 0RF citalopram 10 mg tablet See Rx Instructions .ROUTE .COMPLEX Qty: 45 3RF Dose Instruction: TAKE 1 AND 1/2 TABLETS(15 MG) BY MOUTH DAILY Rx Instructions: TAKE 1 AND 1/2 TABLETS(15 MG) BY MOUTH DAILY clonazepam 1 mg tablet 1 mg PO BEDTIME Qty: 90 1RF Rx Instructions: administer 30 minutes before bedtime valacyclovir [Valtrex] 1 gram tablet 2,000 mg PO BID 1 Days Qty: 4 3RF Referrals: Aleksandar Castro MD [Primary Care Provider] - Stand Alone Forms: Patient Portal/API/Survey
[2025-01-16 15:16] LABS: Bacteria Urine Occasional (0-1); Culture Indicated Urine Cult Not Indicated; RBC Urine 0-1/HPF (0-5/HPF); Squamous Epithelial Cell Urine 0-1 /HPF (0-5/HPF); Urine Volume 10mL (spun); WBC Urine 0-1/HPF (0-5/HPF)
[2025-01-16 15:25] VITALS: BP 130/88; PULSE 67; RESP 18; O2SAT 99
[2025-01-16 15:29] VITALS: BP 130/88; PULSE 69; O2SAT 99
[2025-01-16 15:30] VITALS: PULSE 69; O2SAT 98
[2025-01-16] MEDS: NAPROXEN 250 MG TABLET 500 MG PO (15:40)
[2025-01-16] MEDS: diazePAM 5 MG TABLET PO (15:40)
[2025-01-16 16:00] VITALS: BP 130/78; PULSE 68; RESP 16; TEMP 36.6; O2SAT 99
== END 2025-01-16 16:00 | disposition home or self-care (01) ==
PROVIDERS: Emergency Provider Student in an Organized Health Care Education/Training Program; PCP Internal Medicine
DX: S40.011A Contusion of right shoulder, initial encounter (principal); S16.1XXA Strain of muscle, fascia and tendon at neck level, initial encounter; S09.90XA Unspecified injury of head, initial encounter; M25.511 Pain in right shoulder; M25.562 Pain in left knee; V80.010A Animal-rider injured by fall from or being thrown from horse in noncollision accident, initial encounter
CPT/HCPCS: 70450; 71250; 72125; 73030; 81003; 81015; 81025; 99284

== ENCOUNTER → 2025-06-27 08:07 | Outpatient (CLI) | payer BC, SELFPAY ==
--- NOTE | 2025-06-27 08:09 | DI.MG.S_ITS ---
MM screening mammo BI: 06/27/2025. BI-RADS: 1 CLINICAL: 45-year old female for bilateral screening mammogram. Tyrer-Cuzick lifetime risk of 12.3%. No personal or first-degree family history of breast cancer. Current reported family history of breast cancer: maternal grandmother. PRIOR EXAMS 03/28/2024, 03/08/2024, 01/11/2023. MAMMOGRAPHY TECHNIQUE: 2D and 3D (tomosynthesis) digital mammographic views obtained, with additional images as needed for full coverage. Current study was also evaluated with a Computer Aided Detection (CAD) system. DENSITY D. The breasts are extremely dense, which lowers the sensitivity of mammography. MAMMOGRAPHY FINDINGS Bilateral: No suspicious mass, asymmetry, microcalcification, or other abnormality seen. IMPRESSION: * No evidence of malignancy. RECOMMENDATIONS Bilateral * Annual screening mammography. OVERALL ASSESSMENT CATEGORY BI-RADS-1: Negative. [employer] recommends annual screening mammography beginning at age 40 for women with average risk of breast cancer. ELECTRONICALLY SIGNED: Nadya Lynn M.D. on 06/27/2025 at 01:12:25 PM PT Interpreting Station ID: [id number]
== END ==
LOC: MAMMO 08:08
PROVIDERS: PCP Internal Medicine; Referring Provider Internal Medicine; Visit Provider Internal Medicine
DX: Z12.31 Encounter for screening mammogram for malignant neoplasm of breast (principal); Z80.3 Family history of malignant neoplasm of breast
CPT/HCPCS: 77063; 77067

== ENCOUNTER → 2025-10-03 16:50 | Outpatient (CLI) | payer BC, SELFPAY ==
--- NOTE | 2025-10-03 | DI.MRI.S_ITS ---
PROCEDURE: MR HIP LT WO CON
--- NOTE | 2025-10-03 16:51 | DI.MRI.S_ITS ---
PROCEDURE: MR HIP RT WO CON
== END ==
LOC: MRI 16:50
PROVIDERS: PCP Internal Medicine; Referring Provider Nurse Practitioner; Visit Provider Nurse Practitioner
DX: M76.01 Gluteal tendinitis, right hip (principal); M76.02 Gluteal tendinitis, left hip; S73.191A Other sprain of right hip, initial encounter; S73.192A Other sprain of left hip, initial encounter; M70.61 Trochanteric bursitis, right hip; M67.951 Unspecified disorder of synovium and tendon, right thigh; M25.551 Pain in right hip; M25.552 Pain in left hip
CPT/HCPCS: 73721